=== PATIENT | female | born 1960 | race Caucasian/White ===

== ENCOUNTER 2019-04-28 14:52 | Emergency (ER) | payer MEDICARE ==
--- NOTE | 2019-04-28 15:34 | ED Physician Documentation ---
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 I was called ENVIRONMENTAL TECHNOLOGY PROFESSOR and RN reported to me that her magnesium was 0.9 on 04/19. She does drink Etoh daily. No symptoms.) Review of Systems Constitutional: denies: Fever, Chills Eyes: reports: Reviewed and negative Ears: reports: Reviewed and negative Nose: reports: Reviewed and negative PD PAST MEDICAL HISTORY - Present Medications Home Medications: Ambulatory Orders Medication Instructions Recorded Confirmed RX: Calcium Carbonate 500 mg PO BID #10 tablet 04/28/19 RX: Magnesium Oxide 400 mg PO BID #10 tablet 04/28/19 RX: Thiamine [Vitamin B-1] 100 mg PO DAILY #10 tablet 04/28/19 carBAMazepine [TEGretol] 100 mg QDBREAKFAST 04/28/19 04/28/19 carBAMazepine [TEGretol] 400 mg DAILY PM 04/28/19 04/28/19 - Allergies Allergies/Adverse Reactions: Allergies Allergy/AdvReac Type Severity Reaction Status Date / Time No Known Drug Allergies Allergy Verified 04/28/19 15:06 PD ED PE NORMAL - Vitals Vital signs reviewed: Yes - General General: Alert and oriented X 3, No acute distress - HEENT HEENT: No: PERRL (L pupil 4mm, R pupil 2mm, note present on her ID card) - Neuro Neuro: Alert and oriented X 3, No motor deficit, No sensory deficit, Normal speech - Psych Psych: Normal mood, Normal affect Results - Vitals Vitals: Vital Signs - 24 hr 04/28/19 04/28/19 15:03 17:06 Temperature 36.3 C L 36.2 C L Heart Rate 73 77 Respiratory 16 18 Rate Blood Pressure 154/82 H 140/98 H O2 Saturation 99 98 Oxygen O2 Source Room air - Labs Labs: Laboratory Tests 04/28/19 15:02 Sodium 136 Potassium 3.7 Chloride 95 L Carbon Dioxide 26 Anion Gap 15.0 H BUN 11 Creatinine 0.8 Estimated GFR (MDRD) 73 L Glucose 93 Calcium 8.4 L Magnesium 1.4 L PD MEDICAL DECISION MAKING - ED course ED course: 58yo woman with alcohol abuse with modest hypomagnesemia and mild hypocalcemia. Given IV Mag and thiamine here and rxs. Departure - Departure Disposition: 01 Home, Self Care Clinical Impression: Hypomagnesemia, Hypocalcemia, Alcohol abuse Condition: Good Record reviewed to determine appropriate education?: Yes Instructions: ED Alcohol Abuse Prescriptions: RX: Calcium Carbonate 500 mg PO BID #10 tablet RX: Magnesium Oxide 400 mg PO BID #10 tablet RX: Thiamine [Vitamin B-1] 100 mg PO DAILY #10 tablet Comments: Follow-up with your doctor in 3 days for recheck, potential repeat labs. Take the copy of the labs from today with you, they are already improved compared to the labs done 10 days ago. Discharge Date/Time: 04/28/19 17:22
[2019-04-28] MEDS ORDERED: MAGNESIUM SULFATE 2 GRAM 2 GM/50 ML BAG IV ONE (15:35)
[2019-04-28 15:38] LABS: CALCIUM 8.4 mg/dL (8.5-10.3); CREATININE 0.8 mg/dL (0.4-1.0); MAGNESIUM 1.4 mg/dL (1.7-2.8)
[2019-04-28] MEDS ORDERED: THIAMINE INJ 100 MG in SODIUM CHLORIDE 0.9% 50 ML IV STA (15:48)
[2019-04-28 17:06] VITALS: BP 140/98
== END 2019-04-28 17:22 | disposition home or self-care (01) ==
LOC: ED 14:52
DX: E83.42 Hypomagnesemia (principal); E83.51 Hypocalcemia; F10.10 Alcohol abuse, uncomplicated; Z86.73 Personal history of transient ischemic attack (TIA), and cerebral infarction without residual deficits; Z86.69 Personal history of other diseases of the nervous system and sense organs
CPT/HCPCS: 36415; 80048; 83735; 96365; 96368; 99283; J3411; J7040

== ENCOUNTER 2019-05-06 10:34 | Outpatient (CLI) | payer MEDICARE | END 2019-05-06 10:35 | disposition home or self-care (01) | LOC: LAB 10:34 | PROVIDERS: ATTEND Student in an Organized Health Care Education/Training Program | DX: R76.8 Other specified abnormal immunological findings in serum (principal) | CPT/HCPCS: 36415; 81599; 87521 ==

== ENCOUNTER 2019-05-16 10:31 | Emergency (ER) | payer MEDICARE ==
[2019-05-16 10:38] VITALS: BP 144/90
== END 2019-05-16 12:10 | disposition left against medical advice (07) ==
LOC: ED 10:31
DX: Z53.21 Procedure and treatment not carried out due to patient leaving prior to being seen by health care provider (principal)

== ENCOUNTER 2019-05-19 17:33 | Outpatient (CLI) | payer MEDICARE | END 2019-05-19 17:34 | disposition critical access hospital (66) | LOC: EMS 17:33 | PROVIDERS: ATTEND Surgery | DX: S09.90XA Unspecified injury of head, initial encounter (principal); W18.2XXA Fall in (into) shower or empty bathtub, initial encounter; Y92.002 Bathroom of unspecified non-institutional (private) residence as the place of occurrence of the external cause | CPT/HCPCS: A0425; A0429 ==

== ENCOUNTER 2019-05-19 18:12 | Emergency (ER) | payer MEDICARE ==
--- NOTE | 2019-05-19 18:38 | ED Physician Documentation ---
History of Present Illness - Stated complaint Stated Complaint: SZ/SYNCOPE - History obtained from History obtained from: Patient, Family - History of Present Illness Timing: Prior to arrival - Additonal information Additional information: Patient is a 58-year-old female with history of seizure disorder presenting after recurrent seizure that caused her to fall and strike her head on the shower stall. No incontinence, tongue biting, or significant postictal state. Patient complains of laceration to the head but no significant headache, vision changes, neck pain, back pain or other complaints. No chest pain, difficulty breathing, productive cough, fever, abdominal pain, vomiting, stool changes. Patient is currently on antibiotics for UTI. No anticoagulation. Patient reports that she is compliant with antiepileptic medications. No other improving or worsening factors noted. Review of Systems Constitutional: denies: Fever Eyes: denies: Loss of vision Nose: denies: Epistaxis Throat: denies: Dental pain / toothache Cardiac: denies: Chest pain / pressure Respiratory: denies: Dyspnea, Cough GI: denies: Abdominal Pain, Nausea, Vomiting, Diarrhea : reports: Dysuria Musculoskeletal: denies: Neck pain, Back pain Neurologic: reports: Seizure, Head injury, LOC. denies: Generalized weakness, Focal weakness, Numbness, Headache PD PAST MEDICAL HISTORY - Past Medical History Past Medical History: Yes Neuro: CVA, Seizure disorder - Past Surgical History Past Surgical History: No - Present Medications Home Medications: Ambulatory Orders Medication Instructions Recorded Confirmed Calcium Carbonate 500 mg PO BID #10 tablet 04/28/19 05/16/19 Magnesium Oxide 400 mg PO BID #10 tablet 04/28/19 05/16/19 Thiamine [Vitamin B-1] 100 mg PO DAILY #10 tablet 04/28/19 05/16/19 carBAMazepine [TEGretol] 100 mg QDBREAKFAST 04/28/19 05/16/19 carBAMazepine [TEGretol] 400 mg DAILY PM 04/28/19 05/16/19 - Allergies Allergies/Adverse Reactions: Allergies Allergy/AdvReac Type Severity Reaction Status Date / Time No Known Drug Allergies Allergy Verified 05/19/19 18:52 - Social History Does the pt smoke?: No Smoking Status: Never smoker Does the pt drink ETOH?: Yes Does the pt have substance abuse?: No - Immunizations Immunizations are current?: Yes PD ED PE NORMAL - Vitals Vital signs reviewed: Yes - General General: Alert and oriented X 3, No acute distress, Well developed/nourished - HEENT HEENT: Atraumatic (Scalp laceration otherwise unremarkable), PERRL (Gross visual acuity intact. No nystagmus.), EOMI, Moist mucous membranes, Pharynx benign, Dentition benign, Other (No evidence of intraoral trauma or tongue biting) - Neck Neck: No bony TTP - Cardiac Cardiac: RRR, No murmur - Respiratory Respiratory: No respiratory distress, Clear bilaterally - Abdomen Abdomen: Soft, Non tender, Non distended - Derm Derm: Normal color, Warm and dry, No rash - Extremities Extremities: No deformity, No tenderness to palpate - Neuro Neuro: Alert and oriented X 3, No motor deficit, No sensory deficit - Psych Psych: Normal mood, Normal affect Results - Vitals Vitals: Vital Signs - 24 hr 05/19/19 05/19/19 05/19/19 18:47 20:22 22:00 Temperature 36.9 C 36 C L Heart Rate 82 80 88 Respiratory 15 17 18 Rate Blood Pressure 119/84 H 104/69 99/57 L O2 Saturation 99 100 95 Oxygen O2 Source Room air - Labs Labs: Laboratory Tests 05/19/19 05/19/19 05/19/19 19:09 20:00 20:00 WBC 5.5 RBC 3.31 L Hgb 10.8 L Hct 31.5 L MCV 95.2 MCH 32.6 H MCHC 34.3 RDW 13.1 Plt Count 183 MPV 9.0 Neut # (Auto) 2.6 Lymph # (Auto) 2.0 [place] # (Auto) 0.7 Eos # (Auto) 0.1 Baso # (Auto) 0.0 Absolute Nucleated RBC 0.00 Nucleated RBC % 0.0 PT 12.3 INR 1.1 APTT 26.4 Sodium Potassium Chloride Carbon Dioxide Anion Gap BUN Creatinine Estimated GFR (MDRD) Glucose Calcium Total Bilirubin AST ALT Alkaline Phosphatase Troponin I High Sens Total Protein Albumin Globulin Albumin/Globulin Ratio Lipase TSH Urine Color YELLOW Urine Clarity HAZY Urine pH 6.0 Ur Specific Spencer <=1.005 Urine Protein TRACE Urine Glucose (UA) NEGATIVE Urine Ketones NEGATIVE Urine Occult Blood MODERATE H Urine Nitrite NEGATIVE Urine Bilirubin NEGATIVE Urine Urobilinogen 0.2 (NORMAL) Ur Leukocyte Esterase SMALL H Urine RBC 6-10 H Urine WBC 6-10 H Ur Squamous Epith Cells MANY Squamous H Urine Bacteria Few Ur Microscopic Review INDICATED Urine Culture Comments NOT INDICATED Last Dose Date Last Dose Time Urine Opiates Screen NEGATIVE Ur Oxycodone Screen NEGATIVE Urine Methadone Screen NEGATIVE Ur Propoxyphene Screen NEGATIVE Ur Barbiturates Screen NEGATIVE Carbamazepine Ur Tricyclics Screen NEGATIVE Ur Phencyclidine Scrn NEGATIVE Ur Amphetamine Screen NEGATIVE U Methamphetamines Scrn NEGATIVE U Benzodiazepines Scrn POSITIVE H Urine Cocaine Screen NEGATIVE U Cannabinoids Screen NEGATIVE Ethyl Alcohol 05/19/19 05/19/19 05/19/19 20:00 20:00 20:00 WBC RBC Hgb Hct MCV MCH MCHC RDW Plt Count MPV Neut # (Auto) Lymph # (Auto) [place] # (Auto) Eos # (Auto) Baso # (Auto) Absolute Nucleated RBC Nucleated RBC % PT INR APTT Sodium 138 Potassium 3.0 L Chloride 101 Carbon Dioxide 23 Anion Gap 14.0 H BUN 8 Creatinine 0.8 Estimated GFR (MDRD) 73 L Glucose 91 Calcium 8.2 L Total Bilirubin 0.6 AST 66 H ALT 23 Alkaline Phosphatase 122 H Troponin I High Sens 3.6 Total Protein 7.2 Albumin 3.9 Globulin 3.3 Albumin/Globulin Ratio 1.2 Lipase 27 TSH 1.70 Urine Color Urine Clarity Urine pH Ur Specific Spencer Urine Protein Urine Glucose (UA) Urine Ketones Urine Occult Blood Urine Nitrite Urine Bilirubin Urine Urobilinogen Ur Leukocyte Esterase Urine RBC Urine WBC Ur Squamous Epith Cells Urine Bacteria Ur Microscopic Review Urine Culture Comments Last Dose Date Last Dose Time Urine Opiates Screen Ur Oxycodone Screen Urine Methadone Screen Ur Propoxyphene Screen Ur Barbiturates Screen Carbamazepine Ur Tricyclics Screen Ur Phencyclidine Scrn Ur Amphetamine Screen U Methamphetamines Scrn U Benzodiazepines Scrn Urine Cocaine Screen U Cannabinoids Screen Ethyl Alcohol 246.5 05/19/19 20:00 WBC RBC Hgb Hct MCV MCH MCHC RDW Plt Count MPV Neut # (Auto) Lymph # (Auto) [place] # (Auto) Eos # (Auto) Baso # (Auto) Absolute Nucleated RBC Nucleated RBC % PT INR APTT Sodium Potassium Chloride Carbon Dioxide Anion Gap BUN Creatinine Estimated GFR (MDRD) Glucose Calcium Total Bilirubin AST ALT Alkaline Phosphatase Troponin I High Sens Total Protein Albumin Globulin Albumin/Globulin Ratio Lipase TSH Urine Color Urine Clarity Urine pH Ur Specific Spencer Urine Protein Urine Glucose (UA) Urine Ketones Urine Occult Blood Urine Nitrite Urine Bilirubin Urine Urobilinogen Ur Leukocyte Esterase Urine RBC Urine WBC Ur Squamous Epith Cells Urine Bacteria Ur Microscopic Review Urine Culture Comments Last Dose Date UNKNOWN Last Dose Time UNKNOWN Urine Opiates Screen Ur Oxycodone Screen Urine Methadone Screen Ur Propoxyphene Screen Ur Barbiturates Screen Carbamazepine 10.4 Ur Tricyclics Screen Ur Phencyclidine Scrn Ur Amphetamine Screen U Methamphetamines Scrn U Benzodiazepines Scrn Urine Cocaine Screen U Cannabinoids Screen Ethyl Alcohol PD MEDICAL DECISION MAKING - ED course Complexity details: reviewed results, re-evaluated patient, considered differential, d/w patient, d/w family ED course: Patient reports potentially having a seizure and causing herself to fall strike her head on the shower. Positive loss of consciousness. No incontinence or tongue biting and patient does not appear to be postictal. Later on, find out that patient is heavily intoxicated. Do feel that this could be contributory to today's issues. EKG and troponin obtained and did not find evidence of arrhythmia or other ischemic causes that could have led to these issues. Remainder screening lab work somewhat abnormal, but reflective of patient's underlying disease processes including recent UTI for which she is taking antibi otics. Tegretol level appropriate. CT head and cervical spine did not find evidence of acute pathology. Wound was copiously irrigated and cleaned and found to only be superficial in nature and did not require closure. Tetanus updated. Patient's mother at bedside and able to drive her home. Otherwise, patient and mother advised of all results and recommendations including concussion striction's and precautions, wound care, cessation of alcohol, return precautions and follow-up. Both voiced understanding and are comfortable with discharge plan. Departure - Departure Disposition: 01 Home, Self Care Clinical Impression: Closed head injury, Alcohol intoxication Condition: Good Instructions: ED Alcohol Intoxication, ED Head Injury Closed Follow-Up: your,doctor [Other] - Within 3 Days Comments: Please continue all home medications as previously instructed. Please avoid alcohol. Please be aware of possible closed head injury and concussion including precautions and restrictions for such. Please keep all wounds clean and dry using running water and soap only to clean. Follow-up with primary care physician in next 2 to 3 days and return to ED sooner if experience worsening symptoms or have other concerns.
[2019-05-19] MEDS ORDERED: TETANUS/DIPHTHERIA/PERTUSSIS 0.5 ML SYRINGE IM ONE (18:51)
[2019-05-19] MEDS ORDERED: SODIUM CHLORIDE 0.9% 1,000 ML IV ONE (18:51)
[2019-05-19 19:13] LABS: MUDS CUTOFF CONCENTRATIONS CUTOFF CONC BELOW:
[2019-05-19 19:18] LABS: BILIRUBIN,URINE NEGATIVE (NEGATIVE); GLUCOSE, URINE (UA) NEGATIVE (NEGATIVE); KETONES,URINE (UA) NEGATIVE (NEGATIVE); LEUKOCYTE ESTERASE, URINE SMALL (NEGATIVE); NITRITE,URINE NEGATIVE (NEGATIVE); OCCULT BLOOD,URINE MODERATE (NEGATIVE); PROTEIN,URINE TRACE mg/dL (NEGATIVE); UROBILINOGEN,URINE 0.2 (NORMAL) E.U./dL (NORMAL)
[2019-05-19 19:20] LABS: CLARITY,URINE HAZY (CLEAR)
[2019-05-19 19:30] LABS: BACTERIA,URINE Few /HPF (None Seen); SQUAMOUS EPITHELIAL CELL,UR MANY Squamous (<= Few)
[2019-05-19 19:31] LABS: AMPHETAMINE SCREEN,URINE NEGATIVE (NEGATIVE); BENZODIAZEPINES SCREEN, URINE POSITIVE (NEGATIVE); COCAINE SCREEN URINE NEGATIVE (NEGATIVE); METHADONE SCREEN, URINE NEGATIVE (NEGATIVE); METHAMPHETAMINES SCREEN, URINE NEGATIVE (NEGATIVE); OPIATE SCREEN, URINE NEGATIVE (NEGATIVE); OXYCODONE SCREEN, URINE NEGATIVE (NEGATIVE); PROPOXYPHENE SCREEN, URINE NEGATIVE (NEGATIVE); TRICYCLIC ANTIDEPRESSANT,URINE NEGATIVE (NEGATIVE)
--- NOTE | 2019-05-19 20:06 | CT Report ---
Reason: fall, strike head on shower stall Procedure Date: 05/19/2019 Accession Number: [id number] / [id number] Procedure: CT - CERVICAL SPINE WO CPT Code: FULL RESULT: EXAM: CT CERVICAL SPINE WITHOUT CONTRAST DATE: 05/19/2019 07:32 PM. HISTORY: Fall, strike head on shower stall. COMPARISONS: None available. TECHNIQUE: Thin-section axial images were acquired of the cervical spine without contrast. Post-processing: Coronal and sagittal reformats. Other: None. In accordance with CT protocol optimization, one or more of the following dose reduction techniques were utilized for this exam: automated exposure control, adjustment of mA and/or KV based on patient size, or use of iterative reconstructive technique. FINDINGS: Alignment: Mild dextroconvex curvature of the lower cervical spine, which may be related to patient positioning. Bones/discs: No acute fracture, subluxation, or compression deformity. Facet joint alignment is normal. Mild to moderate multilevel degenerative facet arthropathy, which is most significant at C2-C3. Degenerative disc disease C5-C6 and C6-C7. Musculature: Unremarkable. Other: The paravertebral and prevertebral soft tissues are unremarkable. The lung apices are clear. IMPRESSION: No acute fracture or malalignment of the cervical spine. RAD[facility]
[2019-05-19 20:07] LABS: BASOPHILS % (AUTO) 0.7 %; EOSINOPHILS # (AUTO) 0.1 10^3/uL (0.0-0.7); EOSINOPHILS % (AUTO) 1.3 %; HGB - HEMOGLOBIN 10.8 g/dL (12.0-16.0); LYMPHOCYTES % (AUTO) 35.8 %; MEAN CORPUSCULAR HEMOGLOBIN 32.6 pg (27.0-31.0); MEAN CORPUSCULAR HGB CONC 34.3 g/dL (32.0-36.0); MEAN CORPUSCULAR VOLUME 95.2 fL (81.0-99.0); MONOCYTES # (AUTO) 0.7 10^3/uL (0.0-1.0); MONOCYTES % (AUTO) 13.6 %; NEUTROPHILS # (AUTO) 2.6 10^3/uL (1.5-6.6); PLT - PLATELET COUNT 183 10^3/uL (130-450); RED BLOOD COUNT 3.31 10^6/uL (4.20-5.40); RED CELL DISTRIBUTION WIDTH 13.1 % (12.0-15.0); WHITE BLOOD COUNT 5.5 x10^3/uL (4.8-10.8)
[2019-05-19 20:14] LABS: INR 1.1 (0.8-1.2); PT - PROTHROMBIN TIME 12.3 secs (9.9-12.6)
[2019-05-19 20:21] LABS: ALBUMIN 3.9 g/dL (3.2-5.5); ALBUMIN/GLOBULIN RATIO 1.2 (1.0-2.2); BILIRUBIN,TOTAL 0.6 mg/dL (0.2-1.0); CALCIUM 8.2 mg/dL (8.5-10.3); CREATININE 0.8 mg/dL (0.4-1.0); TOTAL PROTEIN 7.2 g/dL (6.7-8.2)
[2019-05-19 20:22] LABS: PARTIAL THROMBOPLASTIN TIME 26.4 secs (24.9-33.3)
[2019-05-19 20:38] LABS: CARBAMAZEPINE (TEGRETOL) 10.4 ug/mL
--- NOTE | 2019-05-19 20:57 | CT Report ---
Reason: seizure with fall and hitting of head, lac, LOC Procedure Date: 05/19/2019 Accession Number: [id number] / [id number] Procedure: CT - HEAD WO CPT Code: FULL RESULT: EXAM: CT HEAD EXAM DATE: 05/19/2019 07:32 PM. CLINICAL HISTORY: Seizure with fall and hitting of head, lac, LOC. COMPARISON: None. TECHNIQUE: Multiaxial CT images were obtained from the foramen magnum to the vertex. Reformats: Sagittal and coronal. IV contrast: None. In accordance with CT protocol optimization, one or more of the following dose reduction techniques were utilized for this exam: automated exposure control, adjustment of mA and/or KV based on patient size, or use of iterative reconstructive technique. FINDINGS: Parenchyma: No intraparenchymal hemorrhage. No evidence of mass, midline shift, or CT findings of acute infarction. Old right frontal infarction. Alston-white differentiation is distinct. Diffuse chronic microangiopathic white matter changes. Extraaxial Spaces: Generalized prominence of CSF-containing structures, more than expected in this age group. No subdural or epidural collections. Ventricles: The ventricles and cortical sulci are enlarged, consistent with age-related tissue loss. Sinuses and orbits: Imaged paranasal sinuses, orbits, and mastoids show no significant abnormality. Bones: Unremarkable. Other: Prominent localized soft tissue swelling over left occipital parietal area with cephalhematoma measuring about 12 mm in depth and about 18 mm in diameter. IMPRESSION: 1. Soft tissue swelling with cephalhematoma. 2. Prominent atrophy and other chronic findings. No definite acute intracranial lesion. RADIA
[2019-05-19 22:20] VITALS: BP 99/57
== END 2019-05-19 22:48 | disposition home or self-care (01) ==
LOC: EDUNIT# → ED 18:12
DX: S01.01XA Laceration without foreign body of scalp, initial encounter (principal); S06.9X9A Unspecified intracranial injury with loss of consciousness of unspecified duration, initial encounter; W19.XXXA Unspecified fall, initial encounter; Y93.E8 Activity, other personal hygiene; Y92.002 Bathroom of unspecified non-institutional (private) residence as the place of occurrence of the external cause; F10.129 Alcohol abuse with intoxication, unspecified; N39.0 Urinary tract infection, site not specified; G40.909 Epilepsy, unspecified, not intractable, without status epilepticus; Z86.73 Personal history of transient ischemic attack (TIA), and cerebral infarction without residual deficits; Z79.899 Other long term (current) drug therapy
CPT/HCPCS: 36415; 70450; 72125; 80053; 80156; 80306; 80320; 81001; 81003; 83690; 84443; 84484; 85025; 85610; 85730; 87086; 90471; 96360; 99284

== ENCOUNTER 2019-07-03 10:10 | Outpatient (CLI) | payer MEDICARE ==
[2019-07-03 10:59] LABS: ALBUMIN 4.5 g/dL (3.2-5.5); CALCIUM 8.5 mg/dL (8.5-10.3); CREATININE 0.7 mg/dL (0.4-1.0); MAGNESIUM 1.3 mg/dL (1.7-2.8); PHOSPHORUS 3.7 mg/dL (2.5-4.6)
== END 2019-07-03 10:11 | disposition home or self-care (01) ==
LOC: LAB 10:10
PROVIDERS: ATTEND Internal Medicine Nephrology
DX: E83.42 Hypomagnesemia (principal)
CPT/HCPCS: 36415; 80069; 81599; 82570; 83735

== ENCOUNTER 2022-10-24 13:38 | Emergency (ER) | payer MEDICARE ==
[2022-10-24 14:16] VITALS: BP 120/77
--- OUTSIDE RECORDS SUMMARY | 2022-10-24 14:30 | EXTERNAL MEDICAL SUMMARY RPT | Continuity of Care Document ---
:1960 Author Organization [facility] Address [address] [place] [address] Phone Care Team Providers Name Role Phone Unavailable Unavailable Unavailable Homer Patient Registrar, Loyda Unavailable Maximiliano Phillips Md Unavailable Unavailable Allergies No information. Encounters No information. Functional Status No information. Immunizations No information. Medications date description facility 2022-10-24 00:00 [facility]epine [facility] 2022-10-24 00:00 carbamazepine [facility] 2022-10-24 00:00 carbamazepine [facility] 2022-10-24 00:00 carbamazepine [facility] 2022-10-24 00:00 carbamazepine [facility] 2022-10-24 00:00 carbamazepine [facility] 2022-10-24 00:00 carbamazepine [facility] 2022-10-24 00:00 carbamazepine [facility] Problems date description facility 2022-10-24 00:00 Pain of left calf [facility] [place] 2022-10-24 00:00 No current problems or disability [facility] [place] 2022-10-24 00:00 Pain in left lower leg [facility] [place] Procedures date description facility 2022-10-24 00:00 Visit Code Hold [facility] Results/Labs No information. Social History date description facility 2022-10-24 00:00 Unknown if ever smoked [facility] 2022-10-24 00:00 Former smoker [facility] [place] Vital Signs date measurement value units 2022-10-24 00:00 BMI 23.16 kg/m2 2022-10-24 00:00 BP_diastolic 76 mmHg 2022-10-24 00:00 BP_systolic 129 mmHg 2022-10-24 00:00 heart_rate 89 /min 2022-10-24 00:00 height_metric 167.64 cm 2022-10-24 00:00 height_standard 66 in 2022-10-24 00:00 respiration_rate 14 /min 2022-10-24 00:00 temperature_metric 36.17 C 2022-10-24 00:00 temperature_standard 97.1 F 2022-10-24 00:00 weight_metric 64.86 kg 2022-10-24 00:00 weight_standard 143 lb
== END 2022-10-24 14:28 | disposition left against medical advice (07) ==
LOC: ED 13:38
DX: Z53.21 Procedure and treatment not carried out due to patient leaving prior to being seen by health care provider (principal)

== ENCOUNTER 2022-10-25 09:34 | Emergency (ER) | payer MEDICARE ==
[2022-10-25 09:52] VITALS: BP 155/79
--- OUTSIDE RECORDS SUMMARY | 2022-10-25 10:26 | EXTERNAL MEDICAL SUMMARY RPT | Continuity of Care Document ---
:1960 Author Organization [facility] Address [address] [place] [address] Phone Care Team Providers Name Role Phone Unavailable Unavailable Unavailable Homer Patient Registrar, Loyda Unavailable Heather Boyce Md, Maximiliano Unavailable Unavailable Amy, Provider Unavailable Unavailable Allergies No information. Encounters No information. Functional Status No information. Immunizations No information. Medications date description facility 2022-10-24 00:00 carbamazepine [facility] 2022-10-25 00:00 carbamazepine [facility] 2022-10-24 00:00 carbamazepine [facility] 2022-10-25 00:00 carbamazepine [facility] 2022-10-24 00:00 carbamazepine [facility] 2022-10-25 00:00 carbamazepine [facility] 2022-10-24 00:00 carbamazepine [facility] 2022-10-25 00:00 carbamazepine [facility] 2022-10-24 00:00 carbamazepine [facility] 2022-10-25 00:00 carbamazepine [facility] 2022-10-24 00:00 carbamazepine [facility] 2022-10-25 00:00 carbamazepine [facility] 2022-10-24 00:00 carbamazepine [facility] 2022-10-25 00:00 carbamazepine [facility] 2022-10-24 00:00 carbamazepine [facility] 2022-10-25 00:00 carbamazepine [facility] Problems date description facility 2022-10-24 00:00 Pain of left calf [facility] [place] 2022-10-24 00:00 Pain of left calf [facility] [place] 2022-10-24 00:00 No current problems or disability [facility] [place] 2022-10-24 00:00 Pain in left lower leg [facility] [place] 2022-10-24 00:00 Pain in left lower leg [facility] [place] Procedures date description facility 2022-10-24 00:00 Visit Code Hold [facility] 2022-10-24 00:00 Visit Code Hold [facility] Results/Labs No information. Social History date description facility 2022-10-24 00:00 Unknown if ever smoked [facility] [place] 2022-10-24 00:00 Former smoker [facility] [place] 2022-10-24 00:00 Former smoker [facility] [place] Vital Signs date measurement value units 2022-10-24 [...]
--- NOTE | 2022-10-25 11:11 | Ultrasound Report ---
PROCEDURE: Duplex Ext Veins Left INDICATIONS: Left lower leg pain. TECHNIQUE: Real-time imaging, as well as color and pulse Doppler interrogation, were performed of the lower extr emity deep veins from the inguinal ligament to the popliteal fossa. COMPARISON: None. FINDINGS: The deep veins are normally compressible, and free of intraluminal thrombus. Color and pu lse Doppler demonstrate normal phasic intraluminal flow. There is normal augmentation response to di stal compression maneuver. IMPRESSION: Negative duplex left lower extremity venous ultrasound for DVT. Reviewed by: Milind Joya MD on 10/25/2022 11:09 AM PST Approved by: Milind Joya MD on 10/25/2022 11:09 AM PST Station ID: [id number]
== END 2022-10-25 12:28 | disposition left against medical advice (07) ==
LOC: ED 09:34
DX: Z53.21 Procedure and treatment not carried out due to patient leaving prior to being seen by health care provider (principal)